=== PATIENT | female | born 1960 | race Hispanic/Latino ===

== ENCOUNTER 2018-09-21 00:27 | Inpatient (IN) | payer MEDICAID, OTHER ==
[~2018-09-21] VITALS: Ht 170.2 cm; Wt 139.3 kg
[~2018-09-21 00:27] MED LIST: ALDACTAZIDE 501 EACH ORAL; ASPIR 8181 MG ORAL; DIGOXIN0.125 MG/2 ORAL; FUROSEMIDE40 MG ORAL; MACROBID100 MG ORAL; METOPROLOL TART50 M1 ORAL; POTASSIUM CHLO20 ME3 PO; PRADAXA150 MG ORAL; PROPRANOLOL HCL10 MG ORAL; RANEXA500 MG ORAL; SHOWER CHAIR; SPIRONOLACTONE1 EACH ORAL; SYNTHROID150 MCG ORAL
[2018-09-21] MEDS ORDERED: BENAZEPRIL-HCT1 EAC1 ORAL (00:45)
[2018-09-21] MEDS ORDERED: ATORVASTATIN CA20 MG ORAL (00:45)
[2018-09-21] MEDS ORDERED: Metoprolol 5mg/5ml Inj IVP ONE (00:45)
[2018-09-21] MEDS ORDERED: LOSARTAN POTASS50 MG ORAL (00:45)
[2018-09-21] MEDS ORDERED: Ipratropium 0.02% Inh Soln 2.5ml UD HHN ONE (00:45)
[2018-09-21] MEDS ORDERED: ELIQUIS5 MG PO (00:45)
[2018-09-21] MEDS ORDERED: Albuterol ud Inhalation HHN ONE (00:45)
--- NOTE | 2018-09-21 00:57 | Diagnostic Imaging Report ---
EXAM: XR Chest, 1 View CLINICAL HISTORY: CP TECHNIQUE: Frontal view of the chest. COMPARISON: 08/10/15 chest radiography. FINDINGS: Lungs: Lung findings are slightly low. No masses or consolidation. Pleural space: Unremarkable. No pneumothorax. Heart: Unremarkable. No cardiomegaly. Mediastinum: Unremarkable. Bones/joints: Unremarkable. IMPRESSION: No definite acute cardiopulmonary disease.
[2018-09-21 01:09] LABS: BASOPHILS % (AUTO) 1.1 % (0.0-2.0); EOSINOPHILS % (AUTO) 1.2 % (0.0-3.0); HEMATOCRIT 47.5 % (37.0-47.0); HEMOGLOBIN 15.5 G/DL (12.0-16.0); LYMPHOCYTES % (AUTO) 21.8 % (20.0-45.0); MEAN CORPUSCULAR VOLUME 90 FL (80-99); MONOCYTES % (AUTO) 8.3 % (1.0-10.0); NEUTROPHILS % (AUTO) 67.6 % (45.0-75.0); PLATELET COUNT 357 K/UL (150-450); RED BLOOD COUNT 5.27 M/UL (4.20-5.40); RED CELL DISTRIBUTION WIDTH 12.1 % (11.6-14.8)
[2018-09-21 01:20] LABS: ANION GAP 9 mmol/L (5-15); BLOOD UREA NITROGEN 17 mg/dL (7-18); CALCIUM 9.2 MG/DL (8.5-10.1); CARBON DIOXIDE 30 MMOL/L (21-32); CHLORIDE 100 MMOL/L (98-107); CREATININE 1.1 MG/DL (0.55-1.30); POTASSIUM 3.6 MMOL/L (3.5-5.1); SODIUM 139 MMOL/L (136-145)
[2018-09-21 01:22] LABS: INR 1.1 (0.9-1.1)
[2018-09-21 01:30] LABS: ALANINE AMINOTRANSFERASE 40 U/L (12-78); ALBUMIN 3.2 G/DL (3.4-5.0); ALBUMIN/GLOBULIN RATIO 0.6 (1.0-2.7); ALKALINE PHOSPHATASE 72 U/L (46-116); ASPARTATE AMINO TRANSFERASE 45 U/L (15-37); CREATINE KINASE 122 U/L (26-308)
[2018-09-21 02:00] VITALS: BP 115/45
--- NOTE | 2018-09-21 03:33 | Emergency Room Report ---
History of Present Illness General Chief Complaint: Dizziness Source: Patient, Caregiver Present Illness HPI Patient presents with 2 days of worsening dizziness. She is a history of atrial fibrillation and congestive heart failure. She's also had some mild chest pressure during this time. She supposed be taking medication to control her heart rate but denies being on digoxin at this time. Also she takes L requests the thinner blood. According to her court attendant she was recently admitted to [facility]. He claims that they gave her medication that changed her thinking. She's now unable to care for herself at home. She states she believes the medicine was Levaquin. The patient also complains about dysuria and foul odor with urination. She uses oxygen intermittently at home. No fever or productive cough. H/O asthma and COPD. H/O CHF and morbid obesity. Was on digoxin in the past, but now listed as allergy. Allergies: Coded Allergies: MILK (Verified Allergy, Mild, 07/16/14) stomach gas CELECOXIB (Unverified Allergy, Unknown, 07/15/14) CEPHALEXIN (Unverified Allergy, Unknown, 07/15/14) SULFA (SULFONAMIDE ANTIBIOTICS) (Unverified Allergy, Unknown, 07/15/14) Uncoded Allergies: SULFA (Allergy, Unknown, 09/21/18) furinol (Allergy, Unknown, 07/15/14) Patient History Past Medical History: see triage record Social History: Denies: alcohol use, drug use Social History Narrative with some in home health Last Menstrual Period: 15 years ago Now: No Reviewed Nursing Documentation: PMH: Agreed; PSxH: Agreed Nursing Documentation-PMH Hx Cardiac Problems: Yes - chf, afib Hx Hypertension: Yes Hx Asthma: Yes Hx COPD: Yes Hx Cancer: No Hx Gastrointestinal Problems: No Hx Neurological Problems: No Review of Systems All Other Systems: negative except mentioned in HPI Physical Exam Vital Signs Date Time Temp Pulse Resp B/P (MAP) Pulse Ox O2 Delivery O2 Flow Rate FiO2 09/21/18 00:16 99.0 122 18 102/70 92 Room Air 09/21/18 00:49 2.0 28 Sp02 EP Interpretation: reviewed, abnormal - as interpreted by me = low General Appearance: no apparent distress, obese, Chronically Ill Eyes: bilateral eye normal inspection, bilateral eye PERRL, bilateral eye EOMI ENT: moist mucus membranes Neck: supple Respiratory: lungs clear, normal breath sounds, no respiratory distress Cardiovascular #1: tachycardia, irregularly irregular, edema - trace Cardiovascular #2: 2+ radial (L) Gastrointestinal: normal bowel sounds, non tender, overweight Genitourinary: no CVA tenderness, other - poor hygiene and foul odor, no discharge Musculoskeletal: digits/nails normal, no calf tenderness, Peggy's Sign negative Neurologic: alert, grossly normal, oriented - X2 Psychiatric: depressed affect, other - poor memory - not know some meds and events at recent hospitalizations Skin: normal color, no rash Medical Decision Making Diagnostic Impression: Primary Impression: Atrial fibrillation with RVR Additional Impressions: UTI (urinary tract infection) Qualified Codes: N39.0 - Urinary tract infection, site not specified Failure to thrive Qualified Codes: R62.7 - Adult failure to thrive Hypoxia BMI 45.0-49.9, adult ER Course Patient with dizziness with a fib and RVR. DDX: AMI, CHF, bronchospasm, pneumonia, poor medical compliance, PE amongst others. Evaluation with EKG, CXR , labs. Treatment with metoprolol, albuterol/atrovent and cardiac observation. EKG with rapid a fib no acute injury. CXR, no CHF. Labs with normal CBC, coags , CMP. Min elevated BNP. UA with pyuria. Patient improved. Still tachycardia. Repeat Metoprolol. HR 90 after second dose. Needs admission as failure to thrive and needing placement - also to exclude cardiac injury and further rate control. Laboratory Tests Test 09/21/18 01:00 09/21/18 03:40 White Blood Count 9.0 K/UL (4.8-10.8) Red Blood Count 5.27 M/UL (4.20-5.40) Hemoglobin 15.5 G/DL (12.0-16.0) Hematocrit 47.5 % (37.0-47.0) H Mean Corpuscular Volume 90 FL (80-99) Mean Corpuscular Hemoglobin 29.4 PG (27.0-31.0) Mean Corpuscular Hemoglobin Concent 32.6 G/DL (32.0-36.0) Red Cell Distribution Width 12.1 % (11.6-14.8) Platelet Count 357 K/UL (150-450) Mean Platelet Volume 5.6 FL (6.5-10.1) L Neutrophils (%) (Auto) 67.6 % (45.0-75.0) Lymphocytes (%) (Auto) 21.8 % (20.0-45.0) Monocytes (%) (Auto) 8.3 % (1.0-10.0) Eosinophils (%) (Auto) 1.2 % (0.0-3.0) Basophils (%) (Auto) 1.1 % (0.0-2.0) Prothrombin Time 11.9 SEC (9.30-11.50) H Prothrombin Time INR 1.1 (0.9-1.1) PTT 27 SEC (23-33) Sodium Level 139 MMOL/L (136-145) Potassium Level 3.6 MMOL/L (3.5-5.1) Chloride Level 100 MMOL/L (98-107) Carbon Dioxide Level 30 MMOL/L (21-32) Anion Gap 9 mmol/L (5-15) Blood Urea Nitrogen 17 mg/dL (7-18) Creatinine 1.1 MG/DL (0.55-1.30) Estimate Glomerular Filtration Rate 51.2 mL/min (>60) Glucose Level 97 MG/DL (74-106) Calcium Level 9.2 MG/DL (8.5-10.1) Total Bilirubin 1.0 MG/DL (0.2-1.0) Aspartate Amino Transferase (AST) 45 U/L (15-37) H Alanine Aminotransferase (ALT) 40 U/L (12-78) Alkaline Phosphatase 72 U/L (46-116) Total Creatine Kinase 122 U/L (26-308) Troponin I 0.000 ng/mL (0.000-0.056) Pro-B-Type Natriuretic Peptide 470 pg/mL (0-125) H Total Protein 8.7 G/DL (6.4-8.2) H Albumin 3.2 G/DL (3.4-5.0) L Globulin 5.5 g/dL Albumin/Globulin Ratio 0.6 (1.0-2.7) L Urine Color Carol Urine Appearance Cloudy Urine pH 5 (4.5-8.0) Urine Specific [place] 1.010 (1.005-1.035) Urine Protein 1+ (NEGATIVE) H Urine Glucose (UA) Negative (NEGATIVE) Urine Ketones 3+ (NEGATIVE) H Urine Blood 5+ (NEGATIVE) H Urine Nitrite Negative (NEGATIVE) Urine Bilirubin Negative (NEGATIVE) Urine Ictotest Negative (NEGATIVE) Urine Urobilinogen 1 MG/DL (0.0-1.0) H Urine Leukocyte Esterase 2+ (NEGATIVE) H Urine RBC 5-10 /HPF (0 - 2) H Urine WBC 15-20 /HPF (0 - 2) H Urine Squamous Epithelial Cells Moderate /LPF (NONE/OCC) H Urine Bacteria Moderate /HPF (NONE) H EKG Diagnostic Results Rate: tachycardiac Rhythm: other - a fib Rhythm Strip Diag. Results EP Interpretation: yes Rhythm: no PVC's, no ectopy, other - a fib RVR Chest X-Ray Diagnostic Results Chest X-Ray Diagnostic Results : Chest X-Ray Ordered: Yes # of Views/Limited/Complete: 1 View Indication: Other EP Interpretation: Yes Interpretation: no consolidation, no effusion, no pneumothorax, no acute cardiopulmonary disease Impression: No acute disease Electronically Signed by: Electronically signed by Janes Pradhan MD Last Vital Signs Date Time Temp Pulse Resp B/P (MAP) Pulse Ox O2 Delivery O2 Flow Rate FiO2 09/21/18 09:17 Nasal Cannula 2.0 09/21/18 08:44 98.0 90 16 102/73 100 09/21/18 06:00 28 Status: improved Disposition: ADMITTED INPATIENT Condition: Serious Referrals: [facility],REFERRING (PCP) Janes Pradhan MD Sep 21, 2018 03:33
[2018-09-21 03:52] LABS: APPEARANCE,URINE CLOUDY; BILIRUBIN, URINE NEGATIVE (NEGATIVE); COLOR,URINE AMBER; GLUCOSE, URINE (UA) NEGATIVE (NEGATIVE); KETONES,URINE 3+ (NEGATIVE); LEUKOCYTE ESTERASE ,URINE 2+ (NEGATIVE); NITRITE,URINE NEGATIVE (NEGATIVE); PH,URINE 5 (4.5-8.0); PROTEIN,URINE 1+ (NEGATIVE); UROBILINOGEN,URINE 1 MG/DL (0.0-1.0)
[2018-09-21 04:10] VITALS: BP 163/54
[2018-09-21] MEDS ORDERED: Gentamicin 100mg/50ml Premix 50 ML IVPB ONE (04:30)
[2018-09-21] MEDS ORDERED: Metoprolol 5mg/5ml Inj IVP STA (04:31)
[2018-09-21 06:00] VITALS: BP 117/67
[2018-09-21 08:00] VITALS: BP 149/94
[2018-09-21] MEDS: Digoxin Elixir 0.125mg ORAL SCH (10:57)
[2018-09-21] MEDS: Metoprolol Tartrate 50mg tab ORAL SCH ×3 (10:57→21:00)
[2018-09-21 12:00] VITALS: BP 147/92
--- NOTE | 2018-09-21 13:45 | General Progress Note ---
Progress Note Progress Note patient was seen and examined, full dictation report to follow Glory Hamilton M.D. Sep 21, 2018 13:45
--- NOTE | 2018-09-21 14:06 | Cardiac Electrophysiology PN ---
Subjective Subjective [id number] Objective Last 24 Hour Vital Signs Date Time Temp Pulse Resp B/P (MAP) Pulse Ox O2 Delivery O2 Flow Rate FiO2 09/21/18 12:00 83 09/21/18 10:57 108 149/94 09/21/18 10:57 108 09/21/18 09:17 Nasal Cannula 2.0 09/21/18 08:44 98.0 90 16 102/73 100 Nasal Cannula 2.0 09/21/18 08:00 94 09/21/18 06:00 98.4 92 16 117/67 99 Nasal Cannula 2.0 28 09/21/18 04:35 130 121/60 09/21/18 04:10 98.7 90 16 163/54 99 Nasal Cannula 2.0 28 09/21/18 02:00 98.8 98 18 115/45 98 2.0 28 09/21/18 01:07 124 123/52 09/21/18 01:05 118 18 98 Nasal Cannula 2.0 28 09/21/18 00:50 109 17 Nasal Cannula 2.0 28 09/21/18 00:49 107 17 97 Nasal Cannula 2.0 28 09/21/18 00:30 122 18 Room Air 09/21/18 00:16 99.0 122 18 102/70 92 Room Air Laboratory Tests Test 09/21/18 01:00 09/21/18 03:40 09/21/18 11:55 White Blood Count 9.0 K/UL (4.8-10.8) Red Blood Count 5.27 M/UL (4.20-5.40) Hemoglobin 15.5 G/DL (12.0-16.0) Hematocrit 47.5 % (37.0-47.0) H Mean Corpuscular Volume 90 FL (80-99) Mean Corpuscular Hemoglobin 29.4 PG (27.0-31.0) Mean Corpuscular Hemoglobin Concent 32.6 G/DL (32.0-36.0) Red Cell Distribution Width 12.1 % (11.6-14.8) Platelet Count 357 K/UL (150-450) Mean Platelet Volume 5.6 FL (6.5-10.1) L Neutrophils (%) (Auto) 67.6 % (45.0-75.0) Lymphocytes (%) (Auto) 21.8 % (20.0-45.0) Monocytes (%) (Auto) 8.3 % (1.0-10.0) Eosinophils (%) (Auto) 1.2 % (0.0-3.0) Basophils (%) (Auto) 1.1 % (0.0-2.0) Prothrombin Time 11.9 SEC (9.30-11.50) H Prothromb Time International Ratio 1.1 (0.9-1.1) Activated Partial Thromboplast Time 27 SEC (23-33) Sodium Level 139 MMOL/L (136-145) Potassium Level 3.6 MMOL/L (3.5-5.1) Chloride Level 100 MMOL/L (98-107) Carbon Dioxide Level 30 MMOL/L (21-32) Anion Gap 9 mmol/L (5-15) Blood Urea Nitrogen 17 mg/dL (7-18) Creatinine 1.1 MG/DL (0.55-1.30) Estimat Glomerular Filtration Rate 51.2 mL/min (>60) Glucose Level 97 MG/DL (74-106) Calcium Level 9.2 MG/DL (8.5-10.1) Total Bilirubin 1.0 MG/DL (0.2-1.0) Aspartate Amino Transf (AST/SGOT) 45 U/L (15-37) H Alanine Aminotransferase (ALT/SGPT) 40 U/L (12-78) Alkaline Phosphatase 72 U/L (46-116) Total Creatine Kinase 122 U/L (26-308) Troponin I 0.000 ng/mL (0.000-0.056) 0.000 ng/mL (0.000-0.056) Pro-B-Type Natriuretic Peptide 470 pg/mL (0-125) H Total Protein 8.7 G/DL (6.4-8.2) H Albumin 3.2 G/DL (3.4-5.0) L Globulin 5.5 g/dL Albumin/Globulin Ratio 0.6 (1.0-2.7) L Urine Color Carol Urine Appearance Cloudy Urine pH 5 (4.5-8.0) Urine Specific [place] 1.010 (1.005-1.035) Urine Protein 1+ (NEGATIVE) H Urine Glucose (UA) Negative (NEGATIVE) Urine Ketones 3+ (NEGATIVE) H Urine Blood 5+ (NEGATIVE) H Urine Nitrite Negative (NEGATIVE) Urine Bilirubin Negative (NEGATIVE) Urine Ictotest Negative (NEGATIVE) Urine Urobilinogen 1 MG/DL (0.0-1.0) H Urine Leukocyte Esterase 2+ (NEGATIVE) H Urine RBC 5-10 /HPF (0 - 2) H Urine WBC 15-20 /HPF (0 - 2) H Urine Squamous Epithelial Cells Moderate /LPF (NONE/OCC) H Urine Bacteria Moderate /HPF (NONE) H Magnesium Level 1.3 MG/DL (1.8-2.4) L Thyroid Stimulating Hormone (TSH) 1.530 uiU/mL (0.358-3.740) Daniele Laurent MD Sep 21, 2018 14:06
[2018-09-21] MEDS ORDERED: Magnesium Oxide 400mg tab ORAL SCH (14:15)
[2018-09-21] MEDS: Ertapenem 1 GM in NS 55 ML IVPB SCH (15:32)
[2018-09-21] MEDS: Eliquis 2.5mg tablet ORAL SCH (17:35)
--- NOTE | 2018-09-21 19:45 | Consultation ---
DATE OF CONSULTATION: 09/21/2018 CARDIOLOGY CONSULTATION REFERRING PHYSICIAN: Fabiola Osborne M.D. ADDITIONAL REFERRING PHYSICIAN: Glory Hamilton M.D. REASON FOR CONSULTATION: Atrial fibrillation and rapid ventricular response. HISTORY OF PRESENT ILLNESS: The patient is a 57-year-old lady with history of morbid obesity, atrial fibrillation, and congestive heart failure, presented to emergency room for two days of worsening of dizziness. The patient also has some mild chest pressure, was taken medication to control the heart rate. The patient also takes Eliquis as a blood thinner. The patient was recently at [facility]. The patient was admitted and was found to have atrial fibrillation with rapid ventricular response, heart rate of up to 170s. The patient also has dysuria, foul odor with urination. REVIEW OF SYSTEMS: Review of systems was negative other than what was mentioned in the history of present illness. PAST MEDICAL HISTORY: As mentioned above. FAMILY HISTORY: Noncontributory. ALLERGIES: She is allergic to sulfa, Fiorinal, and cephalexin. PHYSICAL EXAMINATION: VITAL SIGNS: Show blood pressure of 149/94, pulse is 80 to 180 during activity, respirations 18, and she is afebrile. HEAD AND NECK: Showed no JVD. LUNGS: Decreased breath sounds. CARDIOVASCULAR: Shows irregular S1 and S2 with no gallop or murmur. ABDOMEN: Morbidly obese. EXTREMITIES: 1+ pitting edema. LABORATORY AND DIAGNOSTIC STUDIES: Her telemetry strip showed atrial fibrillation with heart rate of 170 beats per minute. A 12-lead EKG showed atrial fibrillation at a rate of 107, T-wave abnormality. The echocardiogram showed EF of 50% with ffabgnys-gy-[id number] mitral regurgitation. Labs show white count of 9, hemoglobin of 15.5, hematocrit of 47.5, and platelet count 257,000. Sodium is 139, potassium is 3.6, BUN is , glucose of 97. Troponin negative x2. BNP is 470. ASSESSMENT AND PLAN: 1. Atrial fibrillation with rapid ventricular response. The patient has chronic atrial fibrillation. Continue digoxin 0.125 mg daily and metoprolol 50 mg b.i.d. We will also check a digoxin level to see what the level is. We will start the patient also on Eliquis 5 mg b.i.d. 2. Hypertension, on metoprolol. 3. Hyperlipidemia, on Lipitor. 4. Hypothyroidism, on Synthroid. 5. Morbid obesity. 6. Urinary tract infection, on antibiotics per Dr. Hamilton. Thank you very much for allowing me to participate in the care of this patient. Please do not hesitate to contact me for any questions regarding my evaluation. Daniele Laurent M.D. DR: Donald JOB#: [id number] CC:
[2018-09-21 20:00] VITALS: BP 150/76
[2018-09-21] MEDS: Metoprolol 5mg/5ml Inj IVP PRN (23:16)
[2018-09-22 04:00] VITALS: BP 113/71
[2018-09-22 08:00] VITALS: BP 125/61
[2018-09-22] MEDS: Digoxin Elixir 0.125mg ORAL SCH (08:24)
[2018-09-22] MEDS: Eliquis 2.5mg tablet ORAL SCH ×2 (08:24→18:00)
[2018-09-22] MEDS: Metoprolol Tartrate 50mg tab ORAL SCH ×2 (08:25→20:46)
--- NOTE | 2018-09-22 11:15 | History and Physical Report ---
DATE OF ADMISSION: 09/21/2018 CHIEF COMPLAINT: Dizziness with poorly controlled atrial fibrillation with rapid ventricular rate. HISTORY OF PRESENT ILLNESS: The patient is a 57-year-old female with past medical history of atrial fibrillation, CHF, hypertension, asthma, COPD, and possible dementia, who has been living at home by herself with a caregiver, was brought into [facility] emergency room for worsening dizziness for the last couple of days. The patient was supposed to take her medication to control her heart rate, but she has not been taking them as prescribed including her digoxin and metoprolol. It is unclear whether she is taking any anticoagulation for her chronic atrial fibrillation at this point. According to the caregiver, the patient was recently admitted to [facility] and she received antibiotics with Levaquin to treat her urinary tract infection and she was complaining of dysuria and foul odor with urination. She also had the same complaint today in the emergency room when she was noticed to have foul odor in the ER. The patient uses oxygen chronically at home. She complained of some cough, nonproductive, but no shortness of breath. No fever or chills. No chest pain. No other symptoms. In the ER, the patient's temperature was 99 with pulse rate of 122, and blood pressure of 102/70. The patient received metoprolol and nebulizer treatments and she was admitted to the tele monitor unit for further evaluation and management. The patient also needs placement since she is not able to be caring for herself at home. REVIEW OF SYSTEMS: A 14-point of system reviewed were all negative apart from the one I mentioned above in my History and Physical. PAST MEDICAL HISTORY: Significant for atrial fibrillation, urinary tract infection, CHF, COPD, asthma, and hypertension. PAST SURGICAL HISTORY: Not on record. SOCIAL HISTORY: The patient lives at home with caregiver. Denied using any drugs, tobacco, or alcohol. ALLERGIES: She is allergic to milk, Celecoxib, cephalexin, sulfa, and Fiorinal. MEDICATIONS: At home: 1. She is on aspirin 81 mg once daily. 2. Atorvastatin 10 mg at bedtime. 3. lisinopril with hydrochlorothiazide 20 and 12.5 once daily. 4. Edoxaban versus Pradaxa since both listed on her medication list. 5. Digoxin 0.125 mg once daily. 6. Furosemide 40 mg orally once daily. 7. Levothyroxine 300 mcg orally once daily. 8. Losartan 50 mg orally daily. 9. Metoprolol 50 mg orally twice a day. 10. Nitrofurantoin 100 mg orally q.12 hours. 11. Potassium chloride 10 mEq daily. 12. Ranexa 500 mg orally every 12 hours. 13. Spironolactone with hydrochlorothiazide 50/50 one tablet orally daily. The patient received gentamicin one dose in the ER. She also received metoprolol, Lasix, and Atrovent. LABORATORY DATA: Labs showed white count of 9000, hemoglobin of 15.5, platelet count of 357. BUN of 17, creatinine of 1.1. AST of 45 and ALT of 40. TSH of 1.53. Magnesium of 1.3. INR of 1.1. Urinalysis showed +2 leukocyte esterase, wbc 15 to 20, and moderate amount of bacteria. IMAGING: Chest x-ray showed no definite acute cardiopulmonary disease. PHYSICAL EXAMINATION: VITAL SIGNS: Temperature 98, pulse 90 , respirations 16, blood pressure 102/73, and saturation 100% on two liters nasal cannula. GENERAL: An elderly female, morbidly obese, lying in bed, paranoid. Answer question poorly, not in acute distress. HEENT: Normocephalic and atraumatic. Pupils are reactive to light equally. Moist oral mucosa. No exudate or thrush. NECK: Supple. No lymphadenopathy. CARDIOVASCULAR: She is tachycardic. irregular rhythm with atrial fibrillation. No murmur or gallop. LUNGS: She has diminished breathing sounds at the bases with poor air entry. No wheezing or rhonchi. ABDOMEN: Soft, obese, nontender, nondistended. Normal bowel sounds. No hepatosplenomegaly or ascites. EXTREMITIES: Trace edema. No cyanosis. SKIN: No rash or hives. ASSESSMENT AND PLAN: 1. Atrial fibrillation with rapid ventricular rate suspect due to noncompliance with her atrial fibrillation medications at home. We will resume metoprolol and digoxin for now and start the patient on IV Lopressor p.r.n. to keep heart rate less than 110. Pending Cardiology evaluation Dr. Laurent, was consulted to help controlling her heart rate and to consider restarting anticoagulation whether with Pradaxa or Eliquis, we will leave that up to Cardiology service. At this point, we will continue tele monitor for heart rate and order cardiac enzymes to rule out acute coronary syndrome. I will order also echo to evaluate her ejection fraction. 2. UTI recurrent suspect due to body habitus. We will send urine culture and start the patient on IV Levaquin. Pending urine culture results. 3. CHF. We will continue Lasix with close monitor of daily weight and urine output. The patient will be resumed on metoprolol and digoxin. We will hold her losartan and spironolactone with hydrochlorothiazide since she is going to be on hydralazine drip to avoid hypotension until her heart rate is well controlled. Consider restarting these medication as per Cardiology. 4. COPD. Continue nebulizer treatments and oxygen as needed. 5. Poor social situation. The patient unable to care for herself anymore. Recommend placement, caser, and social services assistant consult tomorrow for further evaluation. 6. For DVT prophylaxis, we will hold off for now. The patient will be fully anticoagulated for her atrial fibrillation, which will cover her DVT prophylaxis. Please feel free to call with any question. Plan of care was discussed with the patient, charge nurse, and contact center consultant. Glory Hamilton M.D. DR: ELIDA JOB#: [id number] CC: JAMES
[2018-09-22 12:00] VITALS: BP 100/55
--- NOTE | 2018-09-22 13:56 | Cardiac Electrophysiology PN ---
Assessment/Plan Assessment/Plan 1. Atrial fibrillation with rapid ventricular response. The patient has chronic atrial fibrillation. Continue digoxin 0.125 mg daily and metoprolol 50 mg b.i.d. and Eliquis 5 mg b.i.d. 2. Hypertension, on metoprolol. 3. Hyperlipidemia, on Lipitor. 4. Hypothyroidism, on Synthroid. 5. Morbid obesity. 6. Urinary tract infection, on antibiotics per Dr. Hamilton. KOFI RN Subjective Subjective Feeling better. No events Objective Last 24 Hour Vital Signs Date Time Temp Pulse Resp B/P (MAP) Pulse Ox O2 Delivery O2 Flow Rate FiO2 09/22/18 12:00 97.3 109 20 100/55 (70) 98 09/22/18 09:00 Room Air 09/22/18 08:25 120 125/61 09/22/18 08:24 120 09/22/18 08:00 98.6 120 20 125/61 (82) 93 09/22/18 04:00 98.6 106 20 113/71 (85) 95 09/22/18 04:00 106 09/22/18 00:00 98 09/21/18 23:16 118 158/86 09/21/18 21:00 Room Air 09/21/18 21:00 66 152/74 09/21/18 20:00 115 09/21/18 20:00 97.9 65 20 150/76 (100) 95 09/21/18 20:00 97.9 115 20 150/76 (100) 95 09/21/18 16:00 113 Intake and Output 09/21/18 09/22/18 19:00 07:00 Intake Total 300 ml Output Total 0 ml 1 ml Balance 0 ml 299 ml Intake Oral 300 ml Output Urine Total 0 ml 1 ml # Bowel Movements 1 Microbiology Date/Time Source Procedure Growth Status 09/21/18 03:40 Urine,Clean Catch Urine Culture - Preliminary Resulted Objective HEAD AND NECK: No JVD. LUNGS: Decreased breath sounds. CARDIOVASCULAR: Irregular S1 and S2 with no gallop or murmur. ABDOMEN: Morbidly obese. EXTREMITIES: 1+ pitting edema. Daniele Laurent MD Sep 22, 2018 13:56
--- NOTE | 2018-09-22 14:50 | General Progress Note ---
Assessment/Plan Assessment/Plan S ; I dont know how I am doing O: appears comfortable, in mild sob, denies any chest pain ' PHYSICAL EXAMINATION: GENERAL: An elderly female, morbidly obese, lying in bed , paranoid. Answer question poorly, not in acute distress. HEENT: Normocephalic and atraumatic. Pupils are reactive to light equally. Moist oral mucosa. No exudate or thrush. NECK: Supple. No lymphadenopathy.CARDIOVASCULAR: She is tachycardic. rhythm with atrial fibrillation. No murmur or gallop.LUNGS: She has diminished breathing sounds at the bases with poor air entry. No wheezing or rhonchi.ABDOMEN: Soft, obese, nontender, nondistended. Normal bowel sounds. No hepatosplenomegaly or ascites.EXTREMITIES: Trace edema. No cyanosis. SKIN: No rash or hives. Meds: reviewed and reconciled, including Eliquis, Metoprolol ASSESSMENT AND PLAN: 1. Atrial fibrillation with rapid ventricular rate suspect due to noncompliance with her atrial fibrillation medications at home. 2. UTI recurrent suspect due to body habitus. 3. CHF. We will continue Lasix with close monitor of daily weight and urine output. will optimize meds accordingly 4. COPD. Continue nebulizer treatments and oxygen as needed. 5. Non compliance with meds 6. Psychiatric d/o 6. GI- DVT prophylaxis, Plan: current medical management Will optimize meds for better control MA Subjective Allergies: Coded Allergies: MILK (Verified Allergy, Mild, 07/16/14) stomach gas CELECOXIB (Unverified Allergy, Unknown, 07/15/14) CEPHALEXIN (Unverified Allergy, Unknown, 07/15/14) SULFA (SULFONAMIDE ANTIBIOTICS) (Unverified Allergy, Unknown, 07/15/14) Uncoded Allergies: SULFA (Allergy, Unknown, 09/21/18) furinol (Allergy, Unknown, 07/15/14) Objective Last 24 Hour Vital Signs Date Time Temp Pulse Resp B/P (MAP) Pulse Ox O2 Delivery O2 Flow Rate FiO2 09/22/18 12:00 97.3 109 20 100/55 (70) 98 09/22/18 09:00 Room Air 09/22/18 08:25 120 125/61 09/22/18 08:24 120 09/22/18 08:00 98.6 120 20 125/61 (82) 93 09/22/18 04:00 98.6 106 20 113/71 (85) 95 09/22/18 04:00 106 09/22/18 00:00 98 09/21/18 23:16 118 158/86 09/21/18 21:00 Room Air 09/21/18 21:00 66 152/74 09/21/18 20:00 115 09/21/18 20:00 97.9 65 20 150/76 (100) 95 09/21/18 20:00 97.9 115 20 150/76 (100) 95 09/21/18 16:00 113 Intake and Output 09/21/18 09/22/18 19:00 07:00 Intake Total 300 ml Output Total 0 ml 1 ml Balance 0 ml 299 ml Intake Oral 300 ml Output Urine Total 0 ml 1 ml # Bowel Movements 1 Height (Feet): 5 Height (Inches): 7.00 Weight (Pounds): 300 Fabiola Osborne MD Sep 22, 2018 14:50
[2018-09-22] MEDS: Ertapenem 1 GM in NS 55 ML IVPB SCH (15:15)
[2018-09-22 16:00] VITALS: BP 97/66
--- NOTE | 2018-09-22 18:38 | Infectious Diseases Prog Note ---
Assessment/Plan Problems: (1) UTI (urinary tract infection) Assessment & Plan: continue ertapenem due to multiple allergy pending culture results (2) Atrial fibrillation with RVR Assessment & Plan: on digoxin and metoprolol , and eliquis , cards is following (3) CHF (congestive heart failure) Assessment & Plan: continue diuretics , monitor daily weight (4) Paranoia Assessment & Plan: psych is following Subjective Allergies: Coded Allergies: MILK (Verified Allergy, Mild, 07/16/14) stomach gas CELECOXIB (Unverified Allergy, Unknown, 07/15/14) CEPHALEXIN (Unverified Allergy, Unknown, 07/15/14) SULFA (SULFONAMIDE ANTIBIOTICS) (Unverified Allergy, Unknown, 07/15/14) Uncoded Allergies: SULFA (Allergy, Unknown, 09/21/18) furinol (Allergy, Unknown, 07/15/14) Objective Vital Signs Last 24 Hour Vital Signs Date Time Temp Pulse Resp B/P (MAP) Pulse Ox O2 Delivery O2 Flow Rate FiO2 09/22/18 18:12 Nasal Cannula 2.0 09/22/18 16:00 109 09/22/18 16:00 98.8 109 20 97/66 (76) 96 09/22/18 12:00 98 09/22/18 12:00 97.3 109 20 100/55 (70) 98 09/22/18 09:00 Room Air 09/22/18 08:25 120 125/61 09/22/18 08:24 120 09/22/18 08:00 98.6 120 20 125/61 (82) 93 09/22/18 08:00 120 09/22/18 04:00 98.6 106 20 113/71 (85) 95 09/22/18 04:00 106 09/22/18 00:00 98 09/21/18 23:16 118 158/86 09/21/18 21:00 Room Air 09/21/18 21:00 66 152/74 09/21/18 20:00 115 09/21/18 20:00 97.9 65 20 150/76 (100) 95 09/21/18 20:00 97.9 115 20 150/76 (100) 95 Height (Feet): 5 Height (Inches): 7.00 Weight (Pounds): 300 Microbiology Date/Time Source Procedure Growth Status 09/21/18 03:40 Urine,Clean Catch Urine Culture - Preliminary Resulted Current Medications Medications (Trade) Dose Ordered Sig/Florina Route PRN Reason Start Time Stop Time Status Last Admin Dose Admin Apixaban (Eliquis) 5 mg BID ORAL 09/21/18 18:00 10/21/18 17:59 09/22/18 08:24 Atorvastatin Calcium (Lipitor) 10 mg BEDTIME ORAL 09/21/18 21:00 10/21/18 20:59 Digoxin (Lanoxin) 0.125 mg DAILY ORAL 09/21/18 10:00 10/21/18 09:59 09/22/18 08:24 Ertapenem 1 gm/ Sodium Chloride 55 ml @ 110 mls/hr Q24H IVPB 09/21/18 15:00 09/26/18 14:59 09/22/18 15:15 Levothyroxine Sodium (Synthroid) 300 mcg ACBREAKFAST ORAL 09/23/18 06:30 10/23/18 06:29 Metoprolol Tartrate (Lopressor) 5 mg Q5MIN X 3 PRN IVP HR >110 09/21/18 12:45 10/21/18 12:44 09/21/18 23:16 Metoprolol Tartrate (Lopressor) 50 mg Q12HR ORAL 09/21/18 10:00 10/21/18 09:59 09/22/18 08:25 Quetiapine Fumarate (SEROquel) 25 mg Q6H PRN ORAL For Anxiety 09/22/18 11:45 10/22/18 11:44 Quetiapine Fumarate (SEROquel) 50 mg BEDTIME ORAL 09/22/18 21:00 10/22/18 20:59 Glory Hamilton M.D. Sep 22, 2018 18:38
[2018-09-22 20:00] VITALS: BP 122/74
[2018-09-22] MEDS ORDERED: Ascorbic Acid 500mg tab ORAL SCH (21:15)
[2018-09-22] MEDS ORDERED: Morphine Sulfate 2mg/ml Inj IVP PRN (21:15)
--- NOTE | 2018-09-22 23:12 | Consultation ---
History of Present Illness General Chief Complaint: Dizziness Present Illness HPI 57-year-old female with past medical history of atrial fibrillation, CHF, hypertension, asthma, COPD, and depression, who has been living at home by herself with a caregiver, was brought into [facility] emergency room for worsening dizziness for the last couple of days. the pt is irritable and uncooperative Allergies: Coded Allergies: MILK (Verified Allergy, Mild, 07/16/14) stomach gas CELECOXIB (Unverified Allergy, Unknown, 07/15/14) CEPHALEXIN (Unverified Allergy, Unknown, 07/15/14) SULFA (SULFONAMIDE ANTIBIOTICS) (Unverified Allergy, Unknown, 07/15/14) Uncoded Allergies: SULFA (Allergy, Unknown, 09/21/18) furinol (Allergy, Unknown, 07/15/14) Medication History Scheduled Aspirin* (Aspir 81*), 81 MG ORAL DAILY, (Reported) Atorvastatin Calcium* (Atorvastatin Calcium*), 10 MG ORAL BEDTIME, (Reported) Benazepril/Hydrochlorothiazide 20-12.5 Mg Tab (Benazepril-Hctz 20-12.5 Mg Tab), 1 TAB ORAL DAILY, (Reported) Dabigatran Etexilate Mesylate* (Pradaxa*), 150 MG ORAL EVERY 12 HOURS, (Reported ) Digoxin* (Digoxin*), 0.125 MG ORAL DAILY, (Reported) Furosemide* (Lasix*), 40 MG ORAL DAILY, (Reported) Levothyroxine Sodium* (Synthroid*), 300 MCG ORAL DAILY, (Reported) Losartan Potassium* (Losartan Potassium*), 50 MG ORAL DAILY, (Reported) Metoprolol Tartrate* (Metoprolol Tartrate*), 50 MG ORAL BID, (Reported) Nitrofurantoin Monohyd/M-Cryst (Nitrofurantoin Rincon-Mcr 100 mg), 100 MG ORAL Q12H Potassium Chloride (Potassium Chloride), 10 MEQ PO DAILY, (Reported) Propranolol Hcl* (Inderal*), 10 MG ORAL THREE TIMES A DAY, (Reported) Ranolazine* (Ranexa*), 500 MG ORAL EVERY 12 HOURS, (Reported) Spironolact/Hydrochlorothiazid (Aldactazide 50-50 Tablet), 1 TAB ORAL DAILY, ( Reported) Spironolact/Hydrochlorothiazid (Spironolactone-Hctz 25-25 Tab), 1 TAB ORAL DAILY , (Reported) Miscellaneous Medications Apixaban (Eliquis), 5 MG PO, (Reported) Durable Medical Equipment [Shower Chair], (Reported), (DME) Patient History Limited by: medical condition History Provided By: Patient, Medical Record, PMD Healthcare decision maker Resuscitation status Full Code Advanced Directive on File No Past Medical/Surgical History Past Medical/Surgical History: (1) ACS (acute coronary syndrome) (2) Hypoxia (3) BMI 45.0-49.9, adult (4) Failure to thrive (5) Atrial fibrillation with RVR (6) UTI (urinary tract infection) (7) CHF (congestive heart failure) (8) Paranoia Review of Systems Psychiatric: Reports: prior hx, anxiety, depressed feelings Physical Exam General Appearance: alert, moderate distress, obese Neurologic: alert, oriented x 3, responsive, depressed affect Last 24 Hour Vital Signs Date Time Temp Pulse Resp B/P (MAP) Pulse Ox O2 Delivery O2 Flow Rate FiO2 09/22/18 20:46 102 122/74 09/22/18 20:00 97.6 109 20 122/74 (90) 98 102 09/22/18 18:12 Nasal Cannula 2.0 09/22/18 16:00 109 09/22/18 16:00 98.8 109 20 97/66 (76) 96 09/22/18 12:00 98 09/22/18 12:00 97.3 109 20 100/55 (70) 98 09/22/18 09:00 Room Air 09/22/18 08:25 120 125/61 09/22/18 08:24 120 09/22/18 08:00 98.6 120 20 125/61 (82) 93 09/22/18 08:00 120 09/22/18 04:00 98.6 106 20 113/71 (85) 95 09/22/18 04:00 106 09/22/18 00:00 98 09/21/18 23:16 118 158/86 Intake and Output 09/21/18 09/22/18 19:00 07:00 Intake Total 300 ml Output Total 0 ml 1 ml Balance 0 ml 299 ml Intake Oral 300 ml Output Urine Total 0 ml 1 ml # Bowel Movements 1 Height (Feet): 5 Height (Inches): 7.00 Weight (Pounds): 300 Medications Current Medications Medications (Trade) Dose Ordered Sig/Florina Route PRN Reason Start Time Stop Time Status Last Admin Dose Admin Acetaminophen (Tylenol) 650 mg Q6H PRN ORAL Mild Pain/Temp > 100.5 09/22/18 21:15 10/22/18 21:14 09/22/18 22:08 Apixaban (Eliquis) 5 mg BID ORAL 09/21/18 18:00 10/21/18 17:59 09/22/18 08:24 Ascorbic Acid (Vitamin C) 500 mg DAILY ORAL 09/22/18 21:15 10/22/18 21:14 09/22/18 22:07 Atorvastatin Calcium (Lipitor) 10 mg BEDTIME ORAL 09/21/18 21:00 10/21/18 20:59 Digoxin (Lanoxin) 0.125 mg DAILY ORAL 09/21/18 10:00 10/21/18 09:59 09/22/18 08:24 Ertapenem 1 gm/ Sodium Chloride 55 ml @ 110 mls/hr Q24H IVPB 09/21/18 15:00 09/26/18 14:59 09/22/18 15:15 Levothyroxine Sodium (Synthroid) 300 mcg ACBREAKFAST ORAL 09/23/18 06:30 10/23/18 06:29 Metoprolol Tartrate (Lopressor) 5 mg Q5MIN X 3 PRN IVP HR >110 09/21/18 12:45 10/21/18 12:44 09/21/18 23:16 Metoprolol Tartrate (Lopressor) 50 mg Q12HR ORAL 09/21/18 10:00 10/21/18 09:59 09/22/18 20:46 Morphine Sulfate (Morphine Sulfate) 2 mg Q8HR PRN IVP PAIN 4-10 09/22/18 21:15 09/29/18 21:14 Quetiapine Fumarate (SEROquel) 25 mg Q6H PRN ORAL For Anxiety 09/22/18 11:45 10/22/18 11:44 Quetiapine Fumarate (SEROquel) 50 mg BEDTIME ORAL 09/22/18 21:00 10/22/18 20:59 Assessment/Plan Problem List: (1) MDD (major depressive disorder) ICD Codes: F32.9 - Major depressive disorder, single episode, unspecified SNOMED: 640404704 (2) mdd Assessment/Plan chaim michael/Shailesh Jacinto MD Sep 22, 2018 23:12
[2018-09-23] VITALS: BP 129/62
[2018-09-23 04:00] VITALS: BP 103/63
[2018-09-23 07:22] LABS: BASOPHILS % (AUTO) 1.2 % (0.0-2.0); HEMOGLOBIN 14.2 G/DL (12.0-16.0); LYMPHOCYTES % (AUTO) 16.9 % (20.0-45.0); MEAN CORPUSCULAR VOLUME 93 FL (80-99); MONOCYTES % (AUTO) 11.5 % (1.0-10.0); NEUTROPHILS % (AUTO) 68.3 % (45.0-75.0); PLATELET COUNT 330 K/UL (150-450); RED BLOOD COUNT 4.73 M/UL (4.20-5.40); RED CELL DISTRIBUTION WIDTH 12.8 % (11.6-14.8); WHITE BLOOD COUNT 7.8 K/UL (4.8-10.8)
[2018-09-23 07:33] LABS: ALANINE AMINOTRANSFERASE 41 U/L (12-78); ALBUMIN 2.9 G/DL (3.4-5.0); ALBUMIN/GLOBULIN RATIO 0.6 (1.0-2.7); ALKALINE PHOSPHATASE 70 U/L (46-116); ANION GAP 4 mmol/L (5-15); ASPARTATE AMINO TRANSFERASE 33 U/L (15-37); BILIRUBIN,TOTAL 0.8 MG/DL (0.2-1.0); BLOOD UREA NITROGEN 12 mg/dL (7-18); CALCIUM 8.7 MG/DL (8.5-10.1); CARBON DIOXIDE 36 MMOL/L (21-32); CHLORIDE 103 MMOL/L (98-107); POTASSIUM 3.8 MMOL/L (3.5-5.1); SODIUM 143 MMOL/L (136-145)
[2018-09-23 07:48] VITALS: BP 128/80
[2018-09-23] MEDS: Metoprolol Tartrate 50mg tab ORAL SCH ×2 (08:21→21:02)
[2018-09-23] MEDS: Digoxin Elixir 0.125mg ORAL SCH (08:21)
[2018-09-23] MEDS: Eliquis 2.5mg tablet ORAL SCH ×2 (09:00→09:22)
[2018-09-23] MEDS: Ascorbic Acid 500mg tab ORAL SCH ×2 (09:00→09:21)
[2018-09-23 12:09] VITALS: BP 103/62
[2018-09-23] MEDS: Metoprolol 5mg/5ml Inj IVP PRN (12:48)
--- NOTE | 2018-09-23 13:35 | General Progress Note ---
Assessment/Plan Assessment/Plan S ; I Guess I am ok O: appears comfortable, in mild sob, denies any chest pain ' PHYSICAL EXAMINATION: GENERAL: An elderly female, morbidly obese, lying in bed , paranoid. Answer question poorly, not in acute distress. HEENT: Normocephalic and atraumatic. Pupils are reactive to light equally. Moist oral mucosa. No exudate or thrush. NECK: Supple. No lymphadenopathy.CARDIOVASCULAR: She is tachycardic. rhythm with atrial fibrillation. No murmur or gallop.LUNGS: She has diminished breathing sounds at the bases with poor air entry. No wheezing or rhonchi.ABDOMEN: Soft, obese, nontender, nondistended. Normal bowel sounds. No hepatosplenomegaly or ascites.EXTREMITIES: Trace edema. No cyanosis. SKIN: No rash or hives. Meds: reviewed and reconciled, including Eliquis, Metoprolol ASSESSMENT AND PLAN: 1. Atrial fibrillation with rapid ventricular rate suspect due to noncompliance with her atrial fibrillation medications at home. 2. UTI recurrent suspect due to body habitus. 3. CHF. We will continue Lasix with close monitor of daily weight and urine output. will optimize meds accordingly 4. COPD. Continue nebulizer treatments and oxygen as needed. 5. Non compliance with meds 6. Psychiatric d/o 6. GI- DVT prophylaxis, Plan: current medical management Will optimize meds for better control MT Medically challenging, secondary to episodic refusal of taking medications Will consult pulmonary Subjective Allergies: Coded Allergies: MILK (Verified Allergy, Mild, 07/16/14) stomach gas CELECOXIB (Unverified Allergy, Unknown, 07/15/14) CEPHALEXIN (Unverified Allergy, Unknown, 07/15/14) SULFA (SULFONAMIDE ANTIBIOTICS) (Unverified Allergy, Unknown, 07/15/14) Uncoded Allergies: SULFA (Allergy, Unknown, 09/21/18) furinol (Allergy, Unknown, 07/15/14) Objective Last 24 Hour Vital Signs Date Time Temp Pulse Resp B/P (MAP) Pulse Ox O2 Delivery O2 Flow Rate FiO2 09/23/18 12:48 123 103/62 09/23/18 12:09 97.6 99 20 103/62 (76) 92 09/23/18 11:39 99 09/23/18 08:57 Nasal Cannula 2.0 09/23/18 08:21 103 128/80 09/23/18 08:21 103 09/23/18 07:51 122 09/23/18 07:48 97.6 103 20 128/80 (96) 92 09/23/18 04:00 97.6 103 20 103/63 (76) 95 09/23/18 00:00 97.7 109 20 129/62 (84) 95 104 09/22/18 20:46 102 122/74 09/22/18 20:00 97.6 109 20 122/74 (90) 98 102 09/22/18 19:02 109 09/22/18 18:12 Nasal Cannula 2.0 09/22/18 16:00 109 09/22/18 16:00 98.8 109 20 97/66 (76) 96 Intake and Output 09/22/18 09/23/18 19:00 07:00 Intake Total 295 ml Output Total 400 ml Balance -105 ml Intake Oral 240 ml IV Total 55 ml Output Urine Total 400 ml Laboratory Tests 09/23/18 06:30: White Blood Count 7.8, Red Blood Count 4.73, Hemoglobin 14.2, Hematocrit 44.0, Mean Corpuscular Volume 93, Mean Corpuscular Hemoglobin 29.9, Mean Corpuscular Hemoglobin Concent 32.2, Red Cell Distribution Width 12.8, Platelet Count 330, Mean Platelet Volume 5.9L, Neutrophils (%) (Auto) 68.3, Lymphocytes (%) (Auto) 16.9L, Monocytes (%) (Auto) 11.5H, Eosinophils (%) (Auto) 2.0, Basophils (%) ( Auto) 1.2, Sodium Level 143, Potassium Level 3.8, Chloride Level 103, Carbon Dioxide Level 36H, Anion Gap 4L, Blood Urea Nitrogen 12, Creatinine 1.0, Estimat Glomerular Filtration Rate 57.1, Glucose Level 107H, Calcium Level 8.7, Magnesium Level 1.5L, Total Bilirubin 0.8, Aspartate Amino Transf (AST/SGOT) 33 , Alanine Aminotransferase (ALT/SGPT) 41, Alkaline Phosphatase 70, Total Protein 8.0, Albumin 2.9L, Globulin 5.1, Albumin/Globulin Ratio 0.6L Height (Feet): 5 Height (Inches): 7.00 Weight (Pounds): 304 Rezvani,Mohammad MD Sep 23, 2018 13:35
--- NOTE | 2018-09-23 14:44 | Infectious Diseases Prog Note ---
Assessment/Plan Problems: (1) UTI (urinary tract infection) Assessment & Plan: with mixed contaminants , will stop ertapenem (2) Atrial fibrillation with RVR Assessment & Plan: on digoxin and metoprolol , and eliquis , cards is following (3) CHF (congestive heart failure) Assessment & Plan: continue diuretics , monitor daily weight (4) Paranoia Assessment & Plan: psych is following Subjective Constitutional: Reports: no symptoms HEENT: Reports: no symptoms Respiratory: Reports: no symptoms Breasts: Reports: no symptoms Cardiovascular: Reports: no symptoms Gastrointestinal/Abdominal: Reports: no symptoms Genitourinary: Reports: no symptoms Neurologic: Reports: no symptoms Psychiatric: Reports: no symptoms Skin: Reports: no symptoms Endocrine: Reports: no symptoms Hematologic: Reports: no symptoms Musculoskeletal: Reports: no symptoms Allergies: Coded Allergies: MILK (Verified Allergy, Mild, 07/16/14) stomach gas CELECOXIB (Unverified Allergy, Unknown, 07/15/14) CEPHALEXIN (Unverified Allergy, Unknown, 07/15/14) SULFA (SULFONAMIDE ANTIBIOTICS) (Unverified Allergy, Unknown, 07/15/14) Uncoded Allergies: SULFA (Allergy, Unknown, 09/21/18) furinol (Allergy, Unknown, 07/15/14) Objective Vital Signs Last 24 Hour Vital Signs Date Time Temp Pulse Resp B/P (MAP) Pulse Ox O2 Delivery O2 Flow Rate FiO2 09/23/18 13:43 98 09/23/18 12:48 123 103/62 09/23/18 12:09 97.6 99 20 103/62 (76) 92 09/23/18 11:39 99 09/23/18 08:57 Nasal Cannula 2.0 09/23/18 08:21 103 128/80 09/23/18 08:21 103 09/23/18 07:51 122 09/23/18 07:48 97.6 103 20 128/80 (96) 92 09/23/18 04:00 97.6 103 20 103/63 (76) 95 09/23/18 00:00 97.7 109 20 129/62 (84) 95 104 09/22/18 20:46 102 122/74 09/22/18 20:00 97.6 109 20 122/74 (90) 98 102 09/22/18 19:02 109 09/22/18 18:12 Nasal Cannula 2.0 09/22/18 16:00 109 09/22/18 16:00 98.8 109 20 97/66 (76) 96 Height (Feet): 5 Height (Inches): 7.00 Weight (Pounds): 304 General Appearance: WD/WN, no acute distress HEENT: normocephalic, atraumatic, anicteric, mucous membranes moist, PERRL, EOMI, pharynx normal, supple, no JVD Respiratory/Chest: chest wall non-tender, lungs clear, normal breath sounds, no respiratory distress, no accessory muscle use Cardiovascular: normal peripheral pulses, normal rate, regular rhythm, no gallop/murmur, no JVD Abdomen: normal bowel sounds, soft, non tender, no organomegaly, non distended , no mass, no scars Genitourinary: normal external genitalia Extremities: no cyanosis, no clubbing Skin: no rash, no lesions, no ulcers Neurologic/Psychiatric: alert, responsive Lymphatic: no neck adenopathy, no groin adenopathy Musculoskeletal: normal muscle bulk, no effusion Microbiology Date/Time Source Procedure Growth Status 09/21/18 03:40 Urine,Clean Catch Urine Culture - Preliminary Mixed Urogenital Contaminants Resulted Laboratory Tests Test 09/23/18 06:30 White Blood Count 7.8 K/UL (4.8-10.8) Red Blood Count 4.73 M/UL (4.20-5.40) Hemoglobin 14.2 G/DL (12.0-16.0) Hematocrit 44.0 % (37.0-47.0) Mean Corpuscular Volume 93 FL (80-99) Mean Corpuscular Hemoglobin 29.9 PG (27.0-31.0) Mean Corpuscular Hemoglobin Concent 32.2 G/DL (32.0-36.0) Red Cell Distribution Width 12.8 % (11.6-14.8) Platelet Count 330 K/UL (150-450) Mean Platelet Volume 5.9 FL (6.5-10.1) L Neutrophils (%) (Auto) 68.3 % (45.0-75.0) Lymphocytes (%) (Auto) 16.9 % (20.0-45.0) L Monocytes (%) (Auto) 11.5 % (1.0-10.0) H Eosinophils (%) (Auto) 2.0 % (0.0-3.0) Basophils (%) (Auto) 1.2 % (0.0-2.0) Sodium Level 143 MMOL/L (136-145) Potassium Level 3.8 MMOL/L (3.5-5.1) Chloride Level 103 MMOL/L (98-107) Carbon Dioxide Level 36 MMOL/L (21-32) H Anion Gap 4 mmol/L (5-15) L Blood Urea Nitrogen 12 mg/dL (7-18) Creatinine 1.0 MG/DL (0.55-1.30) Estimat Glomerular Filtration Rate 57.1 mL/min (>60) Glucose Level 107 MG/DL (74-106) H Calcium Level 8.7 MG/DL (8.5-10.1) Magnesium Level 1.5 MG/DL (1.8-2.4) L Total Bilirubin 0.8 MG/DL (0.2-1.0) Aspartate Amino Transf (AST/SGOT) 33 U/L (15-37) Alanine Aminotransferase (ALT/SGPT) 41 U/L (12-78) Alkaline Phosphatase 70 U/L (46-116) Total Protein 8.0 G/DL (6.4-8.2) Albumin 2.9 G/DL (3.4-5.0) L Globulin 5.1 g/dL Albumin/Globulin Ratio 0.6 (1.0-2.7) L Current Medications Medications (Trade) Dose Ordered Sig/Florina Route PRN Reason Start Time Stop Time Status Last Admin Dose Admin Acetaminophen (Tylenol) 650 mg Q6H PRN ORAL Mild Pain/Temp > 100.5 09/22/18 21:15 10/22/18 21:14 09/22/18 22:08 Apixaban (Eliquis) 5 mg BID ORAL 09/21/18 18:00 10/21/18 17:59 09/22/18 08:24 Ascorbic Acid (Vitamin C) 500 mg DAILY ORAL 09/23/18 09:00 10/23/18 08:59 Atorvastatin Calcium (Lipitor) 10 mg BEDTIME ORAL 09/21/18 21:00 10/21/18 20:59 Digoxin (Lanoxin) 0.125 mg DAILY ORAL 09/21/18 10:00 10/21/18 09:59 09/23/18 08:21 Ertapenem 1 gm/ Sodium Chloride 55 ml @ 110 mls/hr Q24H IVPB 09/21/18 15:00 09/26/18 14:59 09/22/18 15:15 Escitalopram Oxalate (Lexapro) 10 mg DAILY ORAL 09/24/18 09:00 10/24/18 08:59 Levothyroxine Sodium (Synthroid) 300 mcg ACBREAKFAST ORAL 09/23/18 06:30 10/23/18 06:29 09/23/18 06:06 Metoprolol Tartrate (Lopressor) 5 mg Q5MIN X 3 PRN IVP HR >110 09/21/18 12:45 10/21/18 12:44 09/23/18 12:48 Metoprolol Tartrate (Lopressor) 50 mg Q12HR ORAL 09/21/18 10:00 10/21/18 09:59 09/23/18 08:21 Morphine Sulfate (Morphine Sulfate) 2 mg Q8HR PRN IVP PAIN 4-10 09/22/18 21:15 09/29/18 21:14 Quetiapine Fumarate (SEROquel) 25 mg Q6H PRN ORAL For Anxiety 09/22/18 11:45 10/22/18 11:44 Quetiapine Fumarate (SEROquel) 50 mg BEDTIME ORAL 09/23/18 21:00 10/23/18 20:59 Glory Hamilton M.D. Sep 23, 2018 14:43
[2018-09-23 15:18] VITALS: BP 97/61
[2018-09-23] MEDS ORDERED: Digoxin 0.5mg/2ml Inj IVP SCH (15:30)
--- NOTE | 2018-09-23 15:44 | Cardiac Electrophysiology PN ---
Assessment/Plan Assessment/Plan 1. Atrial fibrillation with rapid ventricular response. The patient has chronic atrial fibrillation. Continue metoprolol 50 mg b.i.d. and Eliquis 5 mg b.i.d. Dig level less than 0.2. Give 0.25 iv digoxin and increase Dig to 0.25 daily 2. Hypertension, on metoprolol. 3. Hyperlipidemia, on Lipitor. 4. Hypothyroidism, on Synthroid. 5. Morbid obesity. 6. Urinary tract infection, on antibiotics per Dr. Hamilton. KOFI RN Subjective Subjective Had atrial fib with RVR earlier. No events Objective Last 24 Hour Vital Signs Date Time Temp Pulse Resp B/P (MAP) Pulse Ox O2 Delivery O2 Flow Rate FiO2 09/23/18 15:40 103 09/23/18 15:18 98.9 103 20 97/61 (73) 92 09/23/18 13:43 98 09/23/18 12:48 123 103/62 09/23/18 12:09 97.6 99 20 103/62 (76) 92 09/23/18 11:39 99 09/23/18 08:57 Nasal Cannula 2.0 09/23/18 08:21 103 128/80 09/23/18 08:21 103 09/23/18 07:51 122 09/23/18 07:48 97.6 103 20 128/80 (96) 92 09/23/18 04:00 97.6 103 20 103/63 (76) 95 09/23/18 00:00 97.7 109 20 129/62 (84) 95 104 09/22/18 20:46 102 122/74 09/22/18 20:00 97.6 109 20 122/74 (90) 98 102 09/22/18 19:02 109 09/22/18 18:12 Nasal Cannula 2.0 09/22/18 16:00 109 09/22/18 16:00 98.8 109 20 97/66 (76) 96 Intake and Output 09/22/18 09/23/18 19:00 07:00 Intake Total 295 ml Output Total 400 ml Balance -105 ml Intake Oral 240 ml IV Total 55 ml Output Urine Total 400 ml Laboratory Tests Test 09/23/18 06:30 White Blood Count 7.8 K/UL (4.8-10.8) Red Blood Count 4.73 M/UL (4.20-5.40) Hemoglobin 14.2 G/DL (12.0-16.0) Hematocrit 44.0 % (37.0-47.0) Mean Corpuscular Volume 93 FL (80-99) Mean Corpuscular Hemoglobin 29.9 PG (27.0-31.0) Mean Corpuscular Hemoglobin Concent 32.2 G/DL (32.0-36.0) Red Cell Distribution Width 12.8 % (11.6-14.8) Platelet Count 330 K/UL (150-450) Mean Platelet Volume 5.9 FL (6.5-10.1) L Neutrophils (%) (Auto) 68.3 % (45.0-75.0) Lymphocytes (%) (Auto) 16.9 % (20.0-45.0) L Monocytes (%) (Auto) 11.5 % (1.0-10.0) H Eosinophils (%) (Auto) 2.0 % (0.0-3.0) Basophils (%) (Auto) 1.2 % (0.0-2.0) Sodium Level 143 MMOL/L (136-145) Potassium Level 3.8 MMOL/L (3.5-5.1) Chloride Level 103 MMOL/L (98-107) Carbon Dioxide Level 36 MMOL/L (21-32) H Anion Gap 4 mmol/L (5-15) L Blood Urea Nitrogen 12 mg/dL (7-18) Creatinine 1.0 MG/DL (0.55-1.30) Estimat Glomerular Filtration Rate 57.1 mL/min (>60) Glucose Level 107 MG/DL (74-106) H Calcium Level 8.7 MG/DL (8.5-10.1) Magnesium Level 1.5 MG/DL (1.8-2.4) L Total Bilirubin 0.8 MG/DL (0.2-1.0) Aspartate Amino Transf (AST/SGOT) 33 U/L (15-37) Alanine Aminotransferase (ALT/SGPT) 41 U/L (12-78) Alkaline Phosphatase 70 U/L (46-116) Total Protein 8.0 G/DL (6.4-8.2) Albumin 2.9 G/DL (3.4-5.0) L Globulin 5.1 g/dL Albumin/Globulin Ratio 0.6 (1.0-2.7) L Microbiology Date/Time Source Procedure Growth Status 09/21/18 03:40 Urine,Clean Catch Urine Culture - Preliminary Mixed Urogenital Contaminants Resulted Objective HEAD AND NECK: No JVD. LUNGS: Decreased breath sounds. CARDIOVASCULAR: Irregular S1 and S2 with no gallop or murmur. ABDOMEN: Morbidly obese. EXTREMITIES: 1+ pitting edema. Daniele Laurent MD Sep 23, 2018 15:44
--- NOTE | 2018-09-23 17:45 | Progress Note ---
DATE: 09/23/2018 SUBJECTIVE: The patient is calmer. The patient did not have any episodes of agitation, however, she is irritable and uncooperative. She does not participate in the interview and not answering questions appropriately. She has poor insight. MENTAL STATUS EXAMINATION: The patient is alert and oriented x3. She is obese. Mood is irritable. Affect is constricted and congruent with mood. Thought process is concrete. Thought content, no suicidal or homicidal ideation. ASSESSMENT: Major depressive disorder, paranoia. PLAN: We will start the patient on Lexapro and Seroquel. Provide the patient with reality orientation and supportive therapy. Shailesh Nguyen M.D. DR: Corinne JOB#: [id number] CC:
--- NOTE | 2018-09-23 19:15 | Consultation ---
DATE OF CONSULTATION: 09/23/2018 INFECTIOUS DISEASE CONSULTATION CONSULTING PHYSICIAN: Glory Hamilton M.D. REFERRING PHYSICIAN: Fabiola Osborne M.D. REASON FOR CONSULTATION: Urinary tract infection in a patient with multiple antibiotics allergy. Recommendation for antimicrobial treatment. HISTORY OF PRESENT ILLNESS: The patient is a 57-year-old female with past medical history of atrial fibrillation, CHF, hypertension, asthma, and COPD, was brought into [facility] by her caregiver for worsening dizziness for couple of days. The patient has not been taking her home medicine as prescribed. In the emergency room, she was found to have bad odor when they tried to place a Bell catheter in. Urine sample was obtained via Bell and was sent showed evidence of urinary tract infection. The patient was given Levaquin initially and Infectious Disease consultation now requested for antibiotics treatment and further management since Levaquin was discontinued due to risk of QT prolongation since she has atrial fibrillation. As of note, the patient is poor historian and cannot provide good history. History was mainly obtained from the medical record and the caregiver. REVIEW OF SYSTEMS: Unable to obtain. The patient is a poor historian. PAST MEDICAL HISTORY: Significant for atrial fibrillation, urinary tract infection, CHF, COPD, asthma, and hypertension. PAST SURGICAL HISTORY: Not on record. SOCIAL HISTORY: The patient lives at home by herself with caregiver. Denied using any drugs, tobacco, or alcohol. ALLERGIES: She is allergic to celecoxib, cephalexin, sulfa, and Fiorinal. MEDICATIONS: The patient is currently on ertapenem. For rest of her medications, please refer to MAR. LABORATORY DATA: Labs showed BUN 17, creatinine 1.1. WBC 9, hemoglobin 15.5, and platelet count 357. Urinalysis showed +2 leukocyte esterase, wbc's 15 to 20, and moderate amount of bacteria. IMAGING: Chest x-ray on admission showed no definite acute cardiopulmonary disease. PHYSICAL EXAMINATION: VITAL SIGNS: Temperature 97.3, pulse 109 and regular, respirations 20, and blood pressure 100/55. Saturation 98% on room air. GENERAL: An elderly female, morbidly obese, lying in bed, awake and alert, but paranoid not in acute distress. HEENT: Normocephalic and atraumatic. Pupils are reactive to light. Pale sclerae. Moist oral mucosa. No exudate. NECK: Supple. No lymphadenopathy. CARDIOVASCULAR: She is tachycardic, regular rhythm. S1 and S2 normal. No murmur. LUNGS: Clear. Diminished breathing sounds at the bases. No wheezing or rhonchi. ABDOMEN: Soft, obese, nontender, and nondistended. Normal bowel sounds. No hepatosplenomegaly or ascites. EXTREMITIES: Trace edema. No cyanosis. ASSESSMENT AND RECOMMENDATION: 1. Urinary tract infection. We will continue ertapenem pending final urine culture results. We will deescalate antibiotics based on the results of the culture. 2. Atrial fibrillation with rapid ventricular rate, better controlled with the current cardiac medications. Continue to monitor by Cardiology. 3. Congestive heart failure, stable. Continue Lasix and diuretics as needed. 4. Chronic obstructive pulmonary disease. Continue nebulizer and oxygen. Thank you for the consult. ID will continue to follow. Glory Hamilton M.D. DR: JUNI JOB#: [id number] CC:
[2018-09-23 20:00] VITALS: BP 103/59
[2018-09-24] VITALS: BP 100/69
[2018-09-24 04:00] VITALS: BP 112/71
[2018-09-24 08:00] VITALS: BP 128/77
[2018-09-24] MEDS ORDERED: Ipratropium 0.02% Inh Soln 2.5ml UD HHN PRN (08:45)
[2018-09-24] MEDS ORDERED: Levalbuterol Inh UD 1.25mg/0.5ml HHN PRN (08:45)
--- NOTE | 2018-09-24 08:45 | Consultation ---
Consult Note Consult Note PCCM CONSULTATION 09/24/18 REFERRING PHYSICIAN: Fabiola Osborne MD REASON FOR CONSULTATION: COPD HPI: 57 F h/o obesity, CHF, AF, COPD, ? psychiatric DO a/w AFcRVR and UTI, she has been AFVSS, stable on 2L. + baseline cough and SOB, no wheezing, no F/C, no CP, no NVDC. She is a poor historian but notes a former h/o tobacco use, none for > 30 years , no drug or EtOH use. She is not on a maintenance regimen but uses PRN Ventolin only. She has had multiple recent hospitalizations for which she has been on HHN's PMH: AF, CHF, COPD, psychiatric DO, recurrent UTI's PSH: None ALL: CELECOXIB, CEPHALEXIN, MILK, SULFA, FURINOL Active Scripts Medications Dose Route/Sig Max Daily Dose Days Date Category Dose Instructions Losartan Potassium* (Losartan Potassium) 50 Mg Tablet 50 Mg ORAL DAILY 09/21/18 Reported Benazepril-Hctz 20-12.5 Mg Tab (Benazepril/HCTZ) 1 Each Tablet 1 Tab ORAL DAILY 09/21/18 Reported Atorvastatin Calcium* (Atorvastatin Calcium) 20 Mg Tablet 10 Mg ORAL BEDTIME 09/21/18 Reported Eliquis (Apixaban) 5 Mg Tablet 5 Mg PO 09/21/18 Reported Nitrofurantoin [place]-Mcr 100 mg (Nitrofurantoin Macrocrystals) 100 Mg Cap 100 Mg ORAL Q12H 08/10/15 Rx Spironolactone-Hctz 25-25 Tab (HCTZ/Spironolactone) 1 Each Tablet 1 Tab ORAL DAILY 08/10/15 Reported Aspir 81* (Aspirin) 81 Mg Tablet.dr 81 Mg ORAL DAILY 08/10/15 Reported Digoxin* (Digoxin) 0.125 Mg/2.5 Ml Solution 0.125 Mg ORAL DAILY 08/10/15 Reported Metoprolol Tartrate* (Metoprolol Tartrate) 50 Mg Tablet 50 Mg ORAL BID 08/10/15 Reported [Shower Chair] 07/19/14 Reported Potassium Chloride 20 Meq Tablet.er 10 Meq PO DAILY 07/19/14 Reported Lasix* (Furosemide) 40 Mg Tablet 40 Mg ORAL DAILY 07/19/14 Reported Ranexa* (Ranolazine) 500 Mg Tab.er.12h 500 Mg ORAL EVERY 12 HOURS 07/16/14 Reported Aldactazide 50-50 Tablet (HCTZ/Spironolactone) 1 Each Tablet 1 Tab ORAL DAILY 07/16/14 Reported Synthroid* (Levothyroxine Sodium) 150 Mcg Tablet 300 Mcg ORAL DAILY 07/16/14 Reported Take in the morning on an empty stomach, at least 30 minutes before food. Inderal* (Propranolol HCl) 10 Mg Tablet 10 Mg ORAL THREE TIMES A DAY 07/16/14 Reported Pradaxa* (Dabigatran) 150 Mg Capsule 150 Mg ORAL EVERY 12 HOURS 07/16/14 Reported SHx: Lives with CG, no current T/E/D use, prior extensive tobacco use FHx: N/C ROS: Negative other than HPI PE: Last 24 Hour Vital Signs Date Time Temp Pulse Resp B/P (MAP) Pulse Ox O2 Delivery O2 Flow Rate FiO2 09/24/18 04:00 98.1 73 20 112/71 (85) 96 09/24/18 04:00 82 09/24/18 00:00 90 09/24/18 00:00 98.5 74 20 100/69 (79) 98 09/23/18 21:02 83 103/59 09/23/18 21:00 Nasal Cannula 2.0 09/23/18 20:00 90 09/23/18 20:00 97.4 83 19 103/59 (74) 98 09/23/18 16:12 88 09/23/18 15:40 103 09/23/18 15:18 98.9 103 20 97/61 (73) 92 09/23/18 13:43 98 09/23/18 12:48 123 103/62 09/23/18 12:09 97.6 99 20 103/62 (76) 92 09/23/18 11:39 99 09/23/18 08:57 Nasal Cannula 2.0 NAD, obese female, AAOX3 NC/AT, OPC c MM, NC, MP 4 Supple s LAD or JVD Clear but distant Ir Ir S/NT/ND c NABS No C/C, Tr edema CXR: NAD Assessment/Plan ASSESSMENT: COPD without evidence of exacerbation Obesity with likely underlying AVRIL AFcRVR, now rate controlled UTI/urosepsis Protein calorie malnutrition H/O psychiatric disorder Non-compliance PLAN: Optimize pulmonary hygiene/mobilize as tolerated Titrate down FiO2 to keep SaO2 > 90% PRN Atrovent and Levalbuterol HHN's (no albuterol) Abx per ID, pt declines, encourage compliance Rate/rhythm control per cards Should be on A/C, pt is declining, encourage compliance ABG Should have a thorough outpatient pulmonary eval, including screening CT, PFT's and optimization of inhaler regimen F/U psych recs Harish Peña MD Sep 24, 2018 08:45
[2018-09-24] MEDS: Metoprolol Tartrate 50mg tab ORAL SCH ×2 (09:01→20:40)
[2018-09-24] MEDS: Ascorbic Acid 500mg tab ORAL SCH (09:01)
[2018-09-24] MEDS: Digoxin Elixir 0.125mg ORAL SCH (09:02)
[2018-09-24 12:00] VITALS: BP 129/79
--- NOTE | 2018-09-24 13:32 | General Progress Note ---
Assessment/Plan Problem List: (1) MDD (major depressive disorder) ICD Codes: F32.9 - Major depressive disorder, single episode, unspecified SNOMED: 076725811 (2) mdd Status: stable, progressing Assessment/Plan lexapro 10mg qam seroquel prn ro/st Subjective Neurologic/Psychiatric: Reports: anxiety, depressed, emotional problems Allergies: Coded Allergies: MILK (Verified Allergy, Mild, 07/16/14) stomach gas CELECOXIB (Unverified Allergy, Unknown, 07/15/14) CEPHALEXIN (Unverified Allergy, Unknown, 07/15/14) SULFA (SULFONAMIDE ANTIBIOTICS) (Unverified Allergy, Unknown, 07/15/14) Uncoded Allergies: SULFA (Allergy, Unknown, 09/21/18) furinol (Allergy, Unknown, 07/15/14) Objective Last 24 Hour Vital Signs Date Time Temp Pulse Resp B/P (MAP) Pulse Ox O2 Delivery O2 Flow Rate FiO2 09/24/18 09:02 107 09/24/18 09:01 107 128/77 09/24/18 08:00 106 09/24/18 08:00 98.1 107 20 128/77 (94) 96 09/24/18 04:00 98.1 73 20 112/71 (85) 96 09/24/18 04:00 82 09/24/18 00:00 90 09/24/18 00:00 98.5 74 20 100/69 (79) 98 09/23/18 21:02 83 103/59 09/23/18 21:00 Nasal Cannula 2.0 09/23/18 20:00 90 09/23/18 20:00 97.4 83 19 103/59 (74) 98 09/23/18 16:12 88 09/23/18 15:40 103 09/23/18 15:18 98.9 103 20 97/61 (73) 92 09/23/18 13:43 98 Intake and Output 09/23/18 09/24/18 19:00 07:00 Intake Total 360 ml 120 ml Balance 360 ml 120 ml Intake Oral 360 ml 120 ml # Voids 1 2 Laboratory Tests 09/24/18 09:58: Arterial Blood pH 7.370, Arterial Blood Partial Pressure CO2 56.7*H, Arterial Blood Partial Pressure O2 77.4, Arterial Blood HCO3 32.3H, Arterial Blood Oxygen Saturation 94.6L, Arterial Blood Base Excess 3.5H, Dillan Test [Pending] Height (Feet): 5 Height (Inches): 7.00 General Appearance: no apparent distress, alert, morbidly obese Neurologic: oriented x 3, responsive, depressed affect Shailesh Nguyen MD Sep 24, 2018 13:32
--- NOTE | 2018-09-24 15:38 | Infectious Diseases Prog Note ---
Assessment/Plan Problems: (1) UTI (urinary tract infection) Assessment & Plan: with mixed contaminants , off ertapenem , monitor off antibiotics (2) Atrial fibrillation with RVR Assessment & Plan: on digoxin and metoprolol , and eliquis , cards is following (3) CHF (congestive heart failure) Assessment & Plan: continue diuretics , monitor daily weight (4) Paranoia Assessment & Plan: psych is following Subjective Constitutional: Reports: no symptoms HEENT: Reports: no symptoms Respiratory: Reports: dry cough Breasts: Reports: no symptoms Cardiovascular: Reports: no symptoms Gastrointestinal/Abdominal: Reports: no symptoms Genitourinary: Reports: no symptoms Neurologic: Reports: no symptoms Psychiatric: Reports: no symptoms Skin: Reports: no symptoms Endocrine: Reports: no symptoms Hematologic: Reports: no symptoms Musculoskeletal: Reports: no symptoms Allergies: Coded Allergies: MILK (Verified Allergy, Mild, 07/16/14) stomach gas CELECOXIB (Unverified Allergy, Unknown, 07/15/14) CEPHALEXIN (Unverified Allergy, Unknown, 07/15/14) SULFA (SULFONAMIDE ANTIBIOTICS) (Unverified Allergy, Unknown, 07/15/14) Uncoded Allergies: SULFA (Allergy, Unknown, 09/21/18) furinol (Allergy, Unknown, 07/15/14) Objective Vital Signs Last 24 Hour Vital Signs Date Time Temp Pulse Resp B/P (MAP) Pulse Ox O2 Delivery O2 Flow Rate FiO2 09/24/18 12:00 98.0 83 20 129/79 (96) 97 09/24/18 12:00 88 09/24/18 09:02 107 09/24/18 09:01 107 128/77 09/24/18 09:00 Nasal Cannula 2.0 09/24/18 08:00 106 09/24/18 08:00 98.1 107 20 128/77 (94) 96 09/24/18 04:00 98.1 73 20 112/71 (85) 96 09/24/18 04:00 82 09/24/18 00:00 90 09/24/18 00:00 98.5 74 20 100/69 (79) 98 09/23/18 21:02 83 103/59 09/23/18 21:00 Nasal Cannula 2.0 09/23/18 20:00 90 09/23/18 20:00 97.4 83 19 103/59 (74) 98 09/23/18 16:12 88 09/23/18 15:40 103 Height (Feet): 5 Height (Inches): 7.00 General Appearance: WD/WN, no acute distress HEENT: normocephalic, atraumatic, anicteric, mucous membranes moist, PERRL Respiratory/Chest: chest wall non-tender, lungs clear, normal breath sounds, no respiratory distress, no accessory muscle use Cardiovascular: normal peripheral pulses, normal rate, regular rhythm, no gallop/murmur, no JVD Abdomen: normal bowel sounds, soft, non tender, no organomegaly, non distended , no mass, no scars Extremities: no cyanosis, no clubbing Skin: no rash, no lesions, no ulcers Neurologic/Psychiatric: alert, oriented x 3, responsive Laboratory Tests Test 09/24/18 09:58 Arterial Blood pH 7.370 (7.350-7.450) Arterial Blood Partial Pressure CO2 56.7 mmHg (35.0-45.0) *H Arterial Blood Partial Pressure O2 77.4 mmHg (75.0-100.0) Arterial Blood HCO3 32.3 mmol/L (22.0-26.0) H Arterial Blood Oxygen Saturation 94.6 % (95-100) L Arterial Blood Base Excess 3.5 (-2-2) H Dillan Test Pending Current Medications Medications (Trade) Dose Ordered Sig/Florina Route PRN Reason Start Time Stop Time Status Last Admin Dose Admin Acetaminophen (Tylenol) 650 mg Q6H PRN ORAL Mild Pain/Temp > 100.5 09/22/18 21:15 10/22/18 21:14 09/22/18 22:08 Ascorbic Acid (Vitamin C) 500 mg DAILY ORAL 09/23/18 09:00 10/23/18 08:59 09/24/18 09:01 Atorvastatin Calcium (Lipitor) 10 mg BEDTIME ORAL 09/21/18 21:00 10/21/18 20:59 Digoxin (Lanoxin) 0.25 mg DAILY ORAL 09/24/18 09:00 10/21/18 09:59 09/24/18 09:02 Escitalopram Oxalate (Lexapro) 10 mg DAILY ORAL 09/24/18 09:00 10/24/18 08:59 09/24/18 09:01 Ipratropium [place] (Atrovent) 500 mcg Q4H PRN HHN Shortness of Breath 09/24/18 08:45 09/29/18 08:44 Levalbuterol HCl (Xopenex) 0.63 mg Q4H PRN HHN SOB and WHEEZING 09/24/18 08:45 09/29/18 08:44 Levothyroxine Sodium (Synthroid) 300 mcg ACBREAKFAST ORAL 09/23/18 06:30 10/23/18 06:29 09/24/18 05:46 Metoprolol Tartrate (Lopressor) 5 mg Q5MIN X 3 PRN IVP HR >110 09/21/18 12:45 10/21/18 12:44 09/23/18 12:48 Metoprolol Tartrate (Lopressor) 50 mg Q12HR ORAL 09/21/18 10:00 10/21/18 09:59 09/24/18 09:01 Morphine Sulfate (Morphine Sulfate) 2 mg Q8HR PRN IVP PAIN 4-10 09/22/18 21:15 09/29/18 21:14 Quetiapine Fumarate (SEROquel) 25 mg Q6H PRN ORAL For Anxiety 09/22/18 11:45 10/22/18 11:44 Quetiapine Fumarate (SEROquel) 50 mg BEDTIME ORAL 09/23/18 21:00 10/23/18 20:59 Glory Hamilton M.D. Sep 24, 2018 15:38
[2018-09-24 16:00] VITALS: BP 104/69
--- NOTE | 2018-09-24 18:14 | Cardiac Electrophysiology PN ---
Assessment/Plan Assessment/Plan 1. Atrial fibrillation with rapid ventricular response. Atrial fibrillation is chronic. Continue metoprolol 50 mg bid, Eliquis 5 mg bid and Dig to 0.25 daily 2. Hypertension, on metoprolol. 3. Hyperlipidemia, on Lipitor. 4. Hypothyroidism, on Synthroid. 5. Morbid obesity. 6. Urinary tract infection, on antibiotics per Dr. Hamilton. KOFI RN Subjective Subjective Feeling better. DC planning in progress Objective Last 24 Hour Vital Signs Date Time Temp Pulse Resp B/P (MAP) Pulse Ox O2 Delivery O2 Flow Rate FiO2 09/24/18 16:00 86 09/24/18 12:00 98.0 83 20 129/79 (96) 97 09/24/18 12:00 88 09/24/18 09:02 107 09/24/18 09:01 107 128/77 09/24/18 09:00 Nasal Cannula 2.0 09/24/18 08:00 106 09/24/18 08:00 98.1 107 20 128/77 (94) 96 09/24/18 04:00 98.1 73 20 112/71 (85) 96 09/24/18 04:00 82 09/24/18 00:00 90 09/24/18 00:00 98.5 74 20 100/69 (79) 98 09/23/18 21:02 83 103/59 09/23/18 21:00 Nasal Cannula 2.0 09/23/18 20:00 90 09/23/18 20:00 97.4 83 19 103/59 (74) 98 Intake and Output 09/23/18 09/24/18 19:00 07:00 Intake Total 360 ml 120 ml Balance 360 ml 120 ml Intake Oral 360 ml 120 ml # Voids 1 2 Laboratory Tests Test 09/24/18 09:58 Arterial Blood pH 7.370 (7.350-7.450) Arterial Blood Partial Pressure CO2 56.7 mmHg (35.0-45.0) *H Arterial Blood Partial Pressure O2 77.4 mmHg (75.0-100.0) Arterial Blood HCO3 32.3 mmol/L (22.0-26.0) H Arterial Blood Oxygen Saturation 94.6 % (95-100) L Arterial Blood Base Excess 3.5 (-2-2) H Dillan Test Pending Objective HEAD AND NECK: No JVD. LUNGS: Decreased breath sounds. CARDIOVASCULAR: Irregular S1 and S2 with no gallop or murmur. ABDOMEN: Morbidly obese. EXTREMITIES: 1+ pitting edema. Daniele Laurent MD Sep 24, 2018 18:14
[2018-09-24 20:00] VITALS: BP 137/69
[2018-09-25] VITALS: BP 123/83
[2018-09-25 04:00] VITALS: BP 119/64
[2018-09-25 08:00] VITALS: BP 122/66
[2018-09-25] MEDS: Ascorbic Acid 500mg tab ORAL SCH (09:27)
[2018-09-25] MEDS: Metoprolol Tartrate 50mg tab ORAL SCH ×2 (09:27→21:42)
[2018-09-25] MEDS: Digoxin Elixir 0.125mg ORAL SCH (09:27)
[2018-09-25 12:00] VITALS: BP 129/89
--- NOTE | 2018-09-25 14:56 | Cardiac Electrophysiology PN ---
Assessment/Plan Assessment/Plan 1. Atrial fibrillation with rapid ventricular response. Atrial fibrillation is chronic. Continue metoprolol 50 mg bid and Dig 0.25 daily. Resume Eliquis 5 mg bid 2. Hypertension, on metoprolol. 3. Hyperlipidemia, on Lipitor. 4. Hypothyroidism, on Synthroid. 5. Morbid obesity. 6. Urinary tract infection, on antibiotics per Dr. Hamilton. KOFI RN Subjective Subjective Remained in atrial fib. Placement pending Objective Last 24 Hour Vital Signs Date Time Temp Pulse Resp B/P (MAP) Pulse Ox O2 Delivery O2 Flow Rate FiO2 09/25/18 12:00 97.8 102 20 129/89 (102) 92 09/25/18 11:56 97 09/25/18 09:27 94 09/25/18 09:27 96 122/66 09/25/18 09:00 Nasal Cannula 2.0 09/25/18 08:00 94 09/25/18 08:00 97.8 96 19 122/66 (84) 97 09/25/18 04:00 97.7 93 20 119/64 (82) 96 09/25/18 04:00 82 09/25/18 00:00 97.1 100 18 123/83 (96) 94 09/25/18 00:00 78 09/24/18 21:00 Nasal Cannula 2.0 09/24/18 20:40 99 137/92 09/24/18 20:00 97.3 99 19 137/69 (91) 93 09/24/18 20:00 92 09/24/18 19:38 81 18 Nasal Cannula 2.0 28 09/24/18 16:00 86 09/24/18 16:00 97.9 85 20 104/69 (81) 95 Intake and Output 09/24/18 09/25/18 18:59 06:59 Intake Total 260 ml 120 ml Balance 260 ml 120 ml Intake Oral 260 ml 120 ml # Voids 1 Objective HEAD AND NECK: No JVD. LUNGS: Decreased breath sounds. CARDIOVASCULAR: Irregular S1 and S2 with no gallop or murmur. ABDOMEN: Morbidly obese. EXTREMITIES: 1+ pitting edema. Daniele Laurent MD Sep 25, 2018 14:56
[2018-09-25 16:00] VITALS: BP 134/52
--- NOTE | 2018-09-25 16:25 | Infectious Diseases Prog Note ---
Assessment/Plan Problems: (1) UTI (urinary tract infection) Assessment & Plan: with mixed contaminants , off ertapenem , monitor off antibiotics for now (2) Atrial fibrillation with RVR Assessment & Plan: on digoxin and metoprolol , and eliquis , cards is following (3) CHF (congestive heart failure) Assessment & Plan: continue diuretics , monitor daily weight (4) Paranoia Assessment & Plan: psych is following Subjective Constitutional: Reports: no symptoms HEENT: Reports: no symptoms Respiratory: Reports: no symptoms Breasts: Reports: no symptoms Cardiovascular: Reports: no symptoms Gastrointestinal/Abdominal: Reports: no symptoms Genitourinary: Reports: no symptoms Neurologic: Reports: confusion Psychiatric: Reports: anxiety, other - paranoia Skin: Reports: no symptoms Endocrine: Reports: no symptoms Hematologic: Reports: no symptoms Musculoskeletal: Reports: no symptoms Allergies: Coded Allergies: MILK (Verified Allergy, Mild, 07/16/14) stomach gas CELECOXIB (Unverified Allergy, Unknown, 07/15/14) CEPHALEXIN (Unverified Allergy, Unknown, 07/15/14) SULFA (SULFONAMIDE ANTIBIOTICS) (Unverified Allergy, Unknown, 07/15/14) Uncoded Allergies: SULFA (Allergy, Unknown, 09/21/18) furinol (Allergy, Unknown, 07/15/14) Objective Vital Signs Last 24 Hour Vital Signs Date Time Temp Pulse Resp B/P (MAP) Pulse Ox O2 Delivery O2 Flow Rate FiO2 09/25/18 12:00 97.8 102 20 129/89 (102) 92 09/25/18 11:56 97 09/25/18 09:27 94 09/25/18 09:27 96 122/66 09/25/18 09:00 Nasal Cannula 2.0 09/25/18 08:00 94 09/25/18 08:00 97.8 96 19 122/66 (84) 97 09/25/18 04:00 97.7 93 20 119/64 (82) 96 09/25/18 04:00 82 09/25/18 00:00 97.1 100 18 123/83 (96) 94 09/25/18 00:00 78 09/24/18 21:00 Nasal Cannula 2.0 09/24/18 20:40 99 137/92 09/24/18 20:00 97.3 99 19 137/69 (91) 93 09/24/18 20:00 92 09/24/18 19:38 81 18 Nasal Cannula 2.0 28 Height (Feet): 5 Height (Inches): 7.00 Weight (Pounds): 307 General Appearance: WD/WN, no acute distress HEENT: normocephalic, atraumatic, anicteric, mucous membranes moist, PERRL, EOMI, pharynx normal, supple, no JVD Respiratory/Chest: chest wall non-tender, lungs clear, normal breath sounds, no respiratory distress, no accessory muscle use Cardiovascular: normal peripheral pulses, normal rate, regularly irregular, no gallop/murmur, no JVD Abdomen: normal bowel sounds, soft, non tender, no organomegaly, non distended , no mass, no scars Genitourinary: normal external genitalia Extremities: no cyanosis, no clubbing Skin: no rash, no lesions, no ulcers Neurologic/Psychiatric: alert, responsive Current Medications Medications (Trade) Dose Ordered Sig/Florina Route PRN Reason Start Time Stop Time Status Last Admin Dose Admin Acetaminophen (Tylenol) 650 mg Q6H PRN ORAL Mild Pain/Temp > 100.5 09/22/18 21:15 10/22/18 21:14 09/24/18 20:50 Ascorbic Acid (Vitamin C) 500 mg DAILY ORAL 09/23/18 09:00 10/23/18 08:59 09/25/18 09:27 Atorvastatin Calcium (Lipitor) 10 mg BEDTIME ORAL 09/21/18 21:00 10/21/18 20:59 09/24/18 20:41 Digoxin (Lanoxin) 0.25 mg DAILY ORAL 09/24/18 09:00 10/21/18 09:59 09/25/18 09:27 Escitalopram Oxalate (Lexapro) 10 mg DAILY ORAL 09/24/18 09:00 10/24/18 08:59 09/25/18 09:27 Ipratropium [place] (Atrovent) 500 mcg Q4H PRN HHN Shortness of Breath 09/24/18 08:45 09/29/18 08:44 Levalbuterol HCl (Xopenex) 0.63 mg Q4H PRN HHN SOB and WHEEZING 09/24/18 08:45 09/29/18 08:44 Levothyroxine Sodium (Synthroid) 300 mcg ACBREAKFAST ORAL 09/23/18 06:30 10/23/18 06:29 09/25/18 06:12 Metoprolol Tartrate (Lopressor) 5 mg Q5MIN X 3 PRN IVP HR >110 09/21/18 12:45 10/21/18 12:44 09/23/18 12:48 Metoprolol Tartrate (Lopressor) 50 mg Q12HR ORAL 09/21/18 10:00 10/21/18 09:59 09/25/18 09:27 Morphine Sulfate (Morphine Sulfate) 2 mg Q8HR PRN IVP PAIN 4-10 09/22/18 21:15 09/29/18 21:14 Quetiapine Fumarate (SEROquel) 25 mg Q6H PRN ORAL For Anxiety 09/22/18 11:45 10/22/18 11:44 Quetiapine Fumarate (SEROquel) 50 mg BEDTIME ORAL 09/23/18 21:00 10/23/18 20:59 Glory Hamilton M.D. Sep 25, 2018 16:25
[2018-09-25 20:00] VITALS: BP 147/77
--- NOTE | 2018-09-25 21:41 | General Progress Note ---
Assessment/Plan Problem List: (1) MDD (major depressive disorder) ICD Codes: F32.9 - Major depressive disorder, single episode, unspecified SNOMED: 511339965 (2) mdd Status: stable Assessment/Plan lexapro 10mg qam seroquel prn ro/st Subjective Date patient seen: Sep 25, 2018 Neurologic/Psychiatric: Reports: anxiety, depressed, emotional problems Allergies: Coded Allergies: MILK (Verified Allergy, Mild, 07/16/14) stomach gas CELECOXIB (Unverified Allergy, Unknown, 07/15/14) CEPHALEXIN (Unverified Allergy, Unknown, 07/15/14) SULFA (SULFONAMIDE ANTIBIOTICS) (Unverified Allergy, Unknown, 07/15/14) Uncoded Allergies: SULFA (Allergy, Unknown, 09/21/18) furinol (Allergy, Unknown, 07/15/14) Objective Last 24 Hour Vital Signs Date Time Temp Pulse Resp B/P (MAP) Pulse Ox O2 Delivery O2 Flow Rate FiO2 09/25/18 16:00 97.9 58 18 134/52 (79) 98 09/25/18 15:47 87 09/25/18 12:00 97.8 102 20 129/89 (102) 92 09/25/18 11:56 97 09/25/18 09:27 94 09/25/18 09:27 96 122/66 09/25/18 09:00 Nasal Cannula 2.0 09/25/18 08:00 94 09/25/18 08:00 97.8 96 19 122/66 (84) 97 09/25/18 04:00 97.7 93 20 119/64 (82) 96 09/25/18 04:00 82 09/25/18 00:00 97.1 100 18 123/83 (96) 94 09/25/18 00:00 78 Intake and Output 09/24/18 09/25/18 19:00 07:00 Intake Total 260 ml 120 ml Balance 260 ml 120 ml Intake Oral 260 ml 120 ml # Voids 1 Height (Feet): 5 Height (Inches): 7.00 Weight (Pounds): 307 General Appearance: alert, agitated, morbidly obese Neurologic: oriented x 3, responsive, depressed affect Shailesh Nguyen MD Sep 25, 2018 21:40
--- NOTE | 2018-09-25 22:15 | Consultation ---
DATE OF CONSULTATION: 09/25/2018 INTERNAL MEDICINE CONSULTATION HISTORY OF PRESENT ILLNESS: This is a 57-year-old female with a significant psychiatric history. She has been admitted to the hospital with atrial fibrillation and congestive heart failure. She also has underlying chronic obstructive pulmonary disease. She has significant psych disorder. The patient was seen initially by Dr. Osborne, however, due to insurance, she has been transitioned over to [facility]. The patient is a very poor historian and admits to tobacco use. PAST MEDICAL HISTORY: Atrial fibrillation, congestive heart failure, chronic obstructive pulmonary disease, and psych disorder. PREVIOUS SURGERIES: None. MEDICATIONS: Current medications include losartan, benazepril, Lipitor, Eliquis, nitrofurantoin, Aldactone, aspirin, digoxin, metoprolol, potassium, Lasix, Ranexa, and Synthroid. ALLERGIES: Cephalexin, Celebrex, , and Fiorinal. SOCIAL HISTORY: She lives with a caregiver, however, . REVIEW OF SYSTEMS: Unreliable. PHYSICAL EXAMINATION: GENERAL: Reveals a 57-year-old female. VITAL SIGNS: Blood pressure is 120/70, heart rate 72, respirations 18, and O2 sat 98% on room air. HEENT: Unremarkable. LUNGS: Clear breath sounds bilaterally with normal heart sounds. ABDOMEN: Soft. NEUROLOGIC: Nonfocal. DIAGNOSTIC DATA: X-ray of the chest is unremarkable. IMPRESSION: 1. Chronic obstructive pulmonary disease, stable. 2. Obesity. 3. Atrial fibrillation with rapid ventricular response, now rate controlled. 4. Urinary tract infection. 5. Psychiatric disorder. 6. Noncompliance. RECOMMENDATION: Continue medications at this point. The patient's medications are reviewed. She does not require intravenous steroids or therapy. Intravenously, she is on oral medications and she can be discharged to a [facility] or psychiatric facility. Dax Sanchez M.D. DR: RENO JOB#: [id number] CC:
[2018-09-26] VITALS: BP 149/90
--- NOTE | 2018-09-29 15:17 | Discharge Summary ---
Discharge Summary Discharge Summary _ DATE OF ADMISSION: 09/21/2018 DATE OF DISCHARGE: 09/26/2018 REASON FOR ADMISSION: 57 years old female with past medical history of CHF, hypertension, COPD/asthma , atrial fibrillation, morbid obesity, who lives with at home by herself with caregiver , was brought to emergency department for evaluation due to worsening dizziness for the last couple of days. Patient was not compliant with prescribed digoxin and metoprolol. Upon evaluation s he was found to have atrial fibrillation with rapid ventricular response. Troponin was negative. Pro BNP 470. No leukocytosis ,stable hemoglobin and hematocrit. ABG revealed hypercapnia with PCO2 of 54, electrolytes and renal parameters were stable. Chest X-ray revealed no acute cardiopulmonary pathology. Urinalysis revealed pyuria and moderate bacteria Patient admitted with diagnoses of atrial fibrillation with rapid ventricular response, possible UTI, COPD, congestive heart failure, morbid obesity. 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 Bustillo pulmonary Dr. Casey STORM specialist Dr. Hamilton psychiatrist [facility]SE: Patient admitted to telemetry floor. Supplemental oxygen provided to keep pulse oximetry above 92%. Pulmonary toilet with bronchodilator provided as needed. Per housekeeping manager , no evidence of acute COPD exacerbation. Patient started on empiric antibiotic for probable UTI. Infectious disease specialist followed. Urine culture revealed mixed urogenital contaminants , antibiotic discontinued. Patient with history of congestive heart failure. Digoxin and metoprolol resumed for heart rate control. Patient was continued on anticoagulation with Eliquis. No evidence of bleeding. Patient was continued on diuretic maintenance dose with close monitoring of volumes and cardiorenal parameters. Echocardiogram revealed preserved ejection fraction of 50% with mildly depressed systolic function and wall motion . Moderate to severe mitral regurgitation Blood pressure was stable with beta marcos. Statin was continued. TSH was within normal limits. Synthroid was continued. Psychiatrist seen and evaluated patient , and diagnosed patient with a major depressive disorder. Reality orientation and supportive therapy provided. Patient started on Lexapro. Patient required placement. Patient was working with physical and occupational therapists. Placement was arranged by [facility]. Patient was stable for discharge to long-term facility for continuation of care. FINAL DIAGNOSES: Atrial fibrillation with rapid ventricular response COPD Hypertension Congestive heart failure Morbid obesity Hyperlipidemia Hypothyroidism Major depression disorder Noncompliance DISCHARGE MEDICATIONS: See Medication Reconciliation list. DISCHARGE INSTRUCTIONS: Patient was discharged to the long-term facility. Follow up with medical doctor at the facility. I have been assigned to dictate discharge summary for this account. I was not involved in the patient's management. Karly Prince NP Sep 29, 2018 15:17
== END 2018-09-26 01:45 | DRG 201 ==
LOC: EDBD 00:27 → EDBEDREQ 00:41 → EMR 01:30 → EDBEDREQ 01:56 → 2E 05:30 → EDBEDREQ 05:37 → 2E 12:54
DX: I48.91 Unspecified atrial fibrillation (principal); I11.0 Hypertensive heart disease with heart failure; I50.9 Heart failure, unspecified; E66.01 Morbid (severe) obesity due to excess calories; F22 Delusional disorders; J44.9 Chronic obstructive pulmonary disease, unspecified; E78.5 Hyperlipidemia, unspecified; E03.9 Hypothyroidism, unspecified; F99 Mental disorder, not otherwise specified; F32.9 Major depressive disorder, single episode, unspecified; Z91.19 Patient's noncompliance with other medical treatment and regimen; Z88.1 Allergy status to other antibiotic agents; Z88.2 Allergy status to sulfonamides; Z88.8 Allergy status to other drugs, medicaments and biological substances; N39.0 Urinary tract infection, site not specified; Z79.01 Long term (current) use of anticoagulants; Z68.43 Body mass index [BMI] 50.0-59.9, adult
CPT/HCPCS: 36415; 36600; 71045; 80053; 80162; 81003; 82550; 83735; 83880; 84443; 84484; 85025; 85610; 85730; 87086; 93005; 93306; 94640; 94664; 99285